=== PATIENT | female | born 1985 | race Two or more races ===

== ENCOUNTER 2024-09-28 09:17 | Inpatient (IN) | payer MEDICAID ==
[~2024-09-28] VITALS: Ht 137.2 cm; Wt 55.1 kg
[2024-09-28 11:17] LABS: BASOPHILS % (AUTO) 0.2 % (0-1); EOSINOPHILS # (AUTO) 0.1 X10'3 (0-0.9); EOSINOPHILS % (AUTO) 0.5 % (0-6); HEMATOCRIT 41.6 % (35.0-45.0); HEMOGLOBIN 14.3 g/dl (12.0-16.0); LYMPHOCYTES # (AUTO) 1.2 X10'3 (1.1-4.8); LYMPHOCYTES % (AUTO) 11.3 % (21-51); MEAN CORPUSCULAR HEMOGLOBIN 30.6 PG (27.0-31.0); MEAN CORPUSCULAR HGB CONC 34.4 g/dL (33.0-36.5); MEAN CORPUSCULAR VOLUME 88.7 FL (78-98); MEAN PLATELET VOLUME 7.4 FL (7.4-10.4); MONOCYTES # (AUTO) 0.8 X10'3 (0-0.9); MONOCYTES % (AUTO) 7.8 % (2-12); NEUTROPHILS # (AUTO) 8.3 X10'3 (1.8-7.7); NEUTROPHILS % (AUTO) 80.2 % (42-75); PLATELET COUNT 328 X10'3 (140-440); RED BLOOD COUNT 4.69 X10'6 (4.20-5.60); RED CELL DISTRIBUTION WIDTH 13.5 % (11.5-14.5); WHITE BLOOD COUNT 10.4 X10'3 (4.5-11.0)
[2024-09-28 11:56] LABS: ALANINE AMINOTRANSFERASE 473 U/L (12-78); ALBUMIN 3.6 G/DL (3.4-5.0); ALBUMIN/GLOBULIN RATIO 0.9 (1.1-1.5); ALKALINE PHOSPHATASE 200 IU/L (46-116); ANION GAP 9 (8-16); ASPARTATE AMINO TRANSFERASE 395 U/L (10-37); BLOOD UREA NITROGEN 11 MG/DL (7-18); CALCIUM 8.6 MG/DL (8.5-10.1); CHLORIDE 103 MMOL/L (99-107); CREATININE 0.58 MG/DL (0.40-0.90); GLUCOSE 112 MG/DL (70-104); POTASSIUM 3.6 MMOL/L (3.5-5.1); SODIUM 136 MMOL/L (135-145); TOTAL CARBON DIOXIDE 23.9 MMOL/L (24-32); TOTAL PROTEIN 7.8 G/DL (6.4-8.2); eCRCL 64 ML/MIN; eGFR > 90 ML/MIN
[2024-09-28 12:30] LABS: LIPASE > 375 U/L (16-77)
[2024-09-28] MEDS: normal saline 1000ML IV soln IVB ONE ×2 (13:48→14:54)
[2024-09-28] MEDS: ondansetron/PF 4mg/2ml inj IV ONE (13:50)
[2024-09-28] MEDS: HYDROmorphone 1 mg/ml syringe IV ONE (13:53)
[2024-09-28] MEDS ORDERED: iohexol 300mg/ml 100ml inj. ONE (13:56)
--- NOTE | 2024-09-28 13:56 | Physician Documentation ---
History of Present Illness Chief Complaint: Abdominal Pain w/vomiting Stated Complaint: ABD PAIN Time Seen by MD: 13:24 OK to notify your PCP?: Yes Primary Medical Doctor: NONE Source: patient, RN/MD, RN notes reviewed, old records Mode of Arrival: POV Exam Limitations: no limitations HPI 39-year-old female, with no significant past medical history, presents complaining of intermittent upper abdominal pain for the last year, worse and constant for the last three days. She also reports nausea and vomiting today. Pain seems to increase when she eats. She denies any fevers, chills, bloody stool, diarrhea, or constipation. She denies history of cholecystectomy or any other abdominal surgeries. She denies tobacco abuse or alcohol consumption. Medication Reconciliation Allergies: Coded Allergies: No Known Allergies (Unverified , 09/28/24) Past Medical History Past Medical History: No Pertinent History Past Surgical History: no surgical history; No History Of: abdominal surgery Smoking Status: Never smoker Alcohol Use: None Drug Use: none Lives In: Home Review of Systems All Other Systems at this time: Reviewed and Negative ROS As stated above in the HPI, otherwise all systems are reviewed and negative. Physical Exam Vital Signs: RN Vital Signs have been reviewed: Yes, Temperature: 97.4, Heart Rate: 73, Respiratory Rate: 15, BP: 79/44, Pulse Oximetry: 99, Weight: 55.100 Oxygen Flow Rate: 0 Pulse Oximetry Reflects: adequate oxygenation Physical Exam General: The patient is well developed, well nourished, nontoxic appearing and is in no acute distress. Skin: [employer], warm and dry with no rashes. HEENT: Head was normocephalic and atraumatic. Chest: Clear to auscultation bilaterally without wheezes, rales or rhonchi. No accessory muscle use. No dullness to percussion. Heart: Rate regular and rhythmic. S1, S2. No murmurs. Palpation of the chest wall was normal. No rubs or thrills. Abdomen: Epigastric and LUQ TTP Soft, nondistended. Positive bowel sounds. No guarding or rebound. Extremities: No cyanosis, clubbing or edema. The patient moves all extremities. Pulses were equal and symmetric. Neurologic: Motor and sensation grossly intact. Cranial nerves II-XII grossly intact. A & O x4. Psychologic: Normal mood and affect. No agitation. Progress Progress Note 1413: Hospitalist paged. 1446: Admission orders placed by internal medicine resident. 1740: Case discussed with Dr. Froylan Acevedo, who will consult tomorrow. Results/Orders Reviewed/noted all lab results: Yes Results/Orders Orders - AARON ACEVEDO MD Urinalysis, Cult If Indicated (09/28/24 09:46) Hcg, Ur Ql (09/28/24 09:46) BMP (09/28/24 09:46) Lipase (09/28/24 09:46) CMP (09/28/24 09:46) Drug Screen, Urine (09/28/24 13:39) Monitor (09/28/24 13:39) Saline Lock (09/28/24 13:39) Ct Abdomen Pelvis (09/28/24 13:39) Ethanol (09/28/24 11:00) MG (09/28/24 11:00) Completed Orders - AARON ACEVEDO MD Cbc/Diff (09/28/24 09:46) Ondansetron Inj. (Zofran 4mg/2ml Vial) (09/28/24 13:40) Normal Saline 1000ml (Sodium Chloride 10 (09/28/24 13:40) Hydromorphone 1 Mg/Ml/Pf (Dilaudid Inj.) (09/28/24 13:40) Medications Received in ER Medications (Trade) Dose Ordered Sig/Soniya Route PRN Reason Start Time Stop Time Status Last Admin Dose Admin (Zofran 4mg/2ml vial) 4 mg ONCE ONCE IV 09/28/24 13:40 09/28/24 13:41 DC 09/28/24 13:50 4 MG (sodium chloride 1000ml IV soln) 1,000 ml ONCE ONCE IVB 09/28/24 13:40 09/28/24 13:41 DC 09/28/24 13:48 1,000 ML (Dilaudid inj.) 1 mg ONCE ONCE IV 09/28/24 13:40 09/28/24 13:41 DC 09/28/24 13:53 1 MG Vital Signs 09/28/24 09/28/24 09/28/24 09/28/24 09:43 13:24 13:24 13:45 Temp 97.4 Pulse 74 69 73 Resp 12 18 18 15 B/P (MAP) 112/78 101/54 (70) 79/44 (56) Pulse Ox 98 99 99 O2 Flow Rate 0 0 09/28/24 13:53 Resp 15 Laboratory Tests Test 09/28/24 11:00 White Blood Count 10.4 Red Blood Count 4.69 Hemoglobin 14.3 Hematocrit 41.6 Mean Corpuscular Volume 88.7 Mean Corpuscular Hemoglobin 30.6 Mean Corpuscular Hemoglobin Concent 34.4 Red Cell Distribution Width 13.5 Platelet Count 328 Mean Platelet Volume 7.4 Neutrophils (%) (Auto) 80.2 H Lymphocytes (%) (Auto) 11.3 L Monocytes (%) (Auto) 7.8 Eosinophils (%) (Auto) 0.5 Basophils (%) (Auto) 0.2 Neutrophils # (Auto) 8.3 H Lymphocytes # (Auto) 1.2 Monocytes # (Auto) 0.8 Eosinophils # (Auto) 0.1 Basophils # (Auto) 0.0 CBC Comment Sodium Level 136 Potassium Level 3.6 Chloride Level 103 Carbon Dioxide Level 23.9 L Anion Gap 9 Blood Urea Nitrogen 11 Creatinine 0.58 Estimated GFR/1.73 m2 > 90 BUN/Creatinine Ratio 19.0 Glucose Level 112 H Calcium Level 8.6 Total Bilirubin 1.0 Aspartate Amino Transf (AST/SGOT) 395 H Alanine Aminotransferase (ALT/SGPT) 473 H Alkaline Phosphatase 200 H Total Protein 7.8 Albumin 3.6 Globulin 4.2 Albumin/Globulin Ratio 0.9 L Lipase > 375 H Chemistry Comments Re-Evaluation Re-Evaluation : Re-Evaluation: Improved Progress Patient was seen and examined. Patient was given reassurance. Patient has been complaining of intermittent abdominal pain but has a severe episode today. Patient states the pain was worse after eating radiating to the back. During the workup here has no signs of any infectious etiology WBCs 10.4 hemoglobin hematocrit within normal limits including normal platelets. Chemistry however showed some mild acidosis with a CO2 of 23.9 but BUN creatinine and other electrolytes were within normal limits. Lactic acid 1.4 however patient did have some mild transaminitis. Bilirubin within normal limits AST 395 ALT 473 and alk-phos of 200. Patient's lipase however was elevated greater than 375 unofficially reported to be greater than a 1000. Tox screen alcohol within normal limits. Urinalysis shows a specific gravity of 1.030 with some mild dehydration and a negative . Patient received Zofran he had some nausea later received fluids and Dilaudid. Ultimately the patient was then admitted to the hospitalist service for further workup and care. Patient's CAT scan showed some thickened gallbladder wall without gallstones I was some concern on CAT scan for possible acalculous cholecystitis. However with a negative WBC no antibiotics were given. There is a ruptured right ovarian cysts for which I contacted Gynecology who will follow up on the patient but this appears to be more of an incidental finding. As far as the pancreas there was no signs of any abscess or stranding. Continuous telemetry monitor interpretation shows normal sinus rhythm heart rate 70s, no ectopy, normal, my interpretation. Pulse oximetry monitor interpretation shows normal oxygenation at 98% room air, normal, my interpretation. EKG/XRAY/CT/US/VASC/MRI CT : Interpreted By: radiologist CT: abdomen/pelvis With Contrast?: No Impression CT abdomen and pelvis with IV contrast INDICATION: ABD PAIN TECHNIQUE: Following the IV administration of 100 mL omnipaque 300, Serial axial images were performed through the abdomen and pelvis and then reformatted in the sagittal and coronal plane. All CT scans at this medical facility are performed using dose modulation techniques as appropriate to a performed exam including the following: Automated exposure control was utilized; adjustment of the MA and/or KvP according to patient size; and use of iterative reconstruction technique. FINDINGS: Liver and spleen are normal in size without focal mass. No renal masses, stones or hydronephrosis. No masses or enlargement of the adrenal glands or pancreas. No biliary dilatation. No gallstones. Gallbladder wall is slightly thickened. No distention of bowel loops to suggest mechanical obstruction of bowel. The appendix is normal in appearance. Within the pelvis, bladder is smooth walled without stones. Partially ruptured right ovarian cyst. There is some high density fluid present in the pelvis possibly hemorrhage. IMPRESSION: 1. Partially ruptured right ovarian cyst. There is some high density fluid in the pelvis which may represent hemorrhage. May consider pelvic ultrasound for further evaluation 2. Slightly thickened gallbladder hsieh without gallstones or biliary dilatat ion. Question mild acalculous cholecystitis Computed Tomographic Radiation Dosimetry Report: Total CTDI vol = 10 mGy Total DLP = 490 mGy-cm Low dose protocols were performed. Reviewed by myself, Dr. Acevedo. Ultrasound : Interpreted By: radiologist Ultrasound of: abdomen Impression INDICATION: ruq pain TECHNIQUE: Multiple real-time sonographic images were obtained of the right upper quadrant. COMPARISON: None FINDINGS: The liver demonstrates increased echotexture without focal mass lesions. The liver measures 14 cm. There is no intrahepatic or extrahepatic ductal dilatation. The common duct measures 3 mm. Gallstones The gallbladder wall measures 3 mm and is within normal limits. The right kidney measures 10.7 cm. The right kidney is normal in contour, size, and shape. The echogenicity is normal. There is no hydronephrosis. The pancreas is not well visualized due to overlying bowel gas. IMPRESSION: Cholelithiasis without sonographic evidence of acute cholecystitis. Hepatic steatosis. Reviewed by myself, Dr. Acevedo. Medical Decision Making Additional info obtained from: old records (no prior visits) Differential Dx:Considerations: Include: Bowel obstruction, Cholangitis, Cholelithasis, Constipation, Esophagitis, Gastritis/PUD, Gastroenteritis, GI hemorrhage, Hernia, Hepatitis, Inflammatory BD, Ischemic bowel, Pancreatitis, PID, Urinary obstruction, Urinary tract infection, Urolithiasis, Other Departure Time of Disposition: 14:13 Disposition: 09 ADMITTED INPATIENT Admitted to Inpatient Unit: yes, to hospitalist, to surgeon (Computer Repair Engineer) Admission Level of Care: PCU with Tele Impression: Primary Impression: Acute pancreatitis Qualified Codes: K85.90 - Acute pancreatitis without necrosis or infection, unspecified Additional Impression: Ruptured ovarian cyst Condition: Guarded Referrals: NO PRIMARY CARE PROVIDER (PCP) Education Educated: Patient Educated regarding: diagnosis, need for follow up Signature Scribe Signature: Scribed for Aaron Acevedo MD by Angelika Boss . 09/28/24 13:58 Attestation: The note accurately reflects work and decisions made by me.Aaron Acevedo MD 09/28/24 13:56 AARON ACEVEDO MD Sep 28, 2024 13:56 ANGELIKA FOWLER Sep 28, 2024 14:00
[2024-09-28 14:05] LABS: ETHANOL < 10 MG/DL (<10); MAGNESIUM 2.1 MG/DL (1.5-2.4)
[2024-09-28] MEDS ORDERED: potassium Cl 20 mEq SR tablet PO PRN (14:50)
[2024-09-28] MEDS ORDERED: magnesium sulf-water 4G/100mL 100 ML IV PRN (14:50)
[2024-09-28] MEDS ORDERED: magnesium sulf-water 2g/50mL 50 ML IV PRN (14:50)
[2024-09-28] MEDS ORDERED: magnesium Cl slow-release 64mg tablet PO PRN (14:50)
[2024-09-28] MEDS ORDERED: potassium Cl 40MEQ/1/2NS 520ml 520 ML IV PRN (14:50)
[2024-09-28] MEDS ORDERED: magnesium hydroxide 30ml (MOM) UD suspension PO PRN (14:50)
[2024-09-28] MEDS ORDERED: morphine 2 MG/ML inj. syringe IV PRN (14:50)
[2024-09-28] MEDS ORDERED: acetaminophen 325mg tablet PO PRN (14:50)
[2024-09-28] MEDS ORDERED: mag hydrox/Alum hydrox/simeth 30ml oral suspension PO PRN (14:50)
[2024-09-28] MEDS ORDERED: ondansetron/PF 4mg/2ml inj IV PRN (14:50)
--- NOTE | 2024-09-28 14:59 | RADIOLOGY REPORT ---
INDICATION: ruq pain TECHNIQUE: Multiple real-time sonographic images were obtained of the right upper quadrant. COMPARISON: None FINDINGS: The liver demonstrates increased echotexture without focal mass lesions. The liver measures 14 cm. There is no intrahepatic or extrahepatic ductal dilatation. The common duct measures 3 mm. Gallstones The gallbladder wall measures 3 mm and is within normal limits. The right kidney measures 10.7 cm. The right kidney is normal in contour, size, and shape. The echog enicity is normal. There is no hydronephrosis. The pancreas is not well visualized due to overlying bowel gas. IMPRESSION: Cholelithiasis without sonographic evidence of acute cholecystitis. Hepatic steatosis.
[2024-09-28 15:29] LABS: BILIRUBIN,URINE SMALL (Neg); CLARITY,URINE CLEAR (Clear); COLOR,URINE YELLOW (Yellow); GLUCOSE, URINE NEGATIVE (Neg); KETONES,URINE NEGATIVE (Neg); LEUKOCYTE ESTERASE ,URINE NEGATIVE (Neg); NITRITES, URINE NEGATIVE (Neg); OCCULT BLOOD,URINE TRACE-INTACT (Neg); PROTEIN,URINE TRACE mg/dl (Neg)
[2024-09-28 15:30] LABS: URINE HCG NEGATIVE (NEG)
[2024-09-28] MEDS: ringers solution, lacted 1,000 ML IV SCH (15:39)
[2024-09-28 15:50] LABS: URINE AMPHETAMINE SCREEN NEGATIVE (Neg); URINE BARBITUATE SCREEN NEGATIVE (Neg); URINE BENZODIAZEPINES SCREEN NEGATIVE (Neg); URINE CANNABINOID SCREEN NEGATIVE (Neg); URINE COCAINE SCREEN NEGATIVE (Neg); URINE METHADONE SCREEN NEGATIVE (Neg); URINE OPIATE SCREEN POSITIVE (Neg); URINE PHENCYCLIDINE SCREEN NEGATIVE (Neg)
[2024-09-28 15:56] LABS: UA COLLECTION TYPE NON-SPECIFIED
[2024-09-28 15:57] LABS: MUCUS STRANDS FEW /LPF (Neg); SQUAMOUS EPITHELIAL CELL,UR MANY /LPF (FEW)
[2024-09-28 15:58] LABS: BACTERIA,URINE FEW /HPF (Neg); RBC,URINE 0-2 /HPF (0-2); WBC,URINE 0-4 /HPF (0-4)
--- NOTE | 2024-09-28 16:21 | RADIOLOGY REPORT ---
CT abdomen and pelvis with IV contrast INDICATION: ABD PAIN TECHNIQUE: Following the IV administration of 100 mL omnipaque 300, Serial axial images were performe d through the abdomen and pelvis and then reformatted in the sagittal and coronal plane. All CT scans at this medical facility are performed using dose modulation techniques as appropriate to a performe d exam including the following: Automated exposure control was utilized; adjustment of the MA and/or KvP according to patient size; and use of iterative reconstruction technique. FINDINGS: Liver and spleen are normal in size without focal mass. No renal masses, stones or hydronephrosis. No masses or enlargement of the adrenal glands or pancreas. No biliary dilatation. No gallstones. Gallbladder wall is slightly thickened. No distention of bowel loops to suggest mechanical obstruction of bowel. The appendix is normal in ap pearance. Within the pelvis, bladder is smooth walled without stones. Partially ruptured right ovarian cyst. There is some high density fluid present in the pelvis possibly hemorrhage. IMPRESSION: 1. Partially ruptured right ovarian cyst. There is some high density fluid in the pelvis which may r epresent hemorrhage. May consider pelvic ultrasound for further evaluation 2. Slightly thickened gallbladder hsieh without gallstones or biliary dilatation. Question mild acalc ulous cholecystitis Computed Tomographic Radiation Dosimetry Report: Total CTDI vol = 10 mGy Total DLP = 490 mGy-cm Low d ose protocols were performed.
[2024-09-28 19:15] VITALS: BP 102/66; PULSE 82; RESP 16; TEMP 98.1; O2SAT 99
--- NOTE | 2024-09-28 19:31 | HISTORY AND PHYSICAL-Residence ---
History & Physical Providers to CC Resident Creating Document: PARK SOLORZANO RES ~ History of Present Illness Primary Medical Doctor: NONE Reason for Admit\Complaint: Acute pancreatitis History of Present Illness 39-year-old female with no significant past medical history presented to the ED with chief complaints of abdominal pain x1 day. States on Saturday at around 11:00 a.m. she had chips and chilly, after that she had pizza and chicken for lunch. Post lunch she started having upper and right-sided abdominal pain. Intensity 8/10. She states that eating aggravates the pain. No relieving factors. Associated with back pain. Denies nausea, vomiting, diarrhea, constipation, fever, chills. She had similar episode of abdominal pain a year ago and was diagnosed to have gastritis, she states that she was discharged on a medication does not remember which one by her PCP in [place]. She moved to [place] three years ago and she does not have a PCP at this time. Denies alcohol, smoking or drug use. Does not take any home medication except vitamins. She is independent in daily activities and lives with her family. Discussed advanced care directives and she wishes to be a full code. Allergies: Coded Allergies: No Known Allergies (Unverified , 09/28/24) Past Medical History Past Medical History None Past Surgical History Surgical History Comment section x3 Past Social History Alcohol Use: None Drug Use: None Lives In: Home ROS All Other Systems: Reviewed and Negative ROS Reviewed in full. All negative except for pertinent positive HPI. Exam Vitals: Vital Signs Date Time Temp Pulse Resp B/P (MAP) Pulse Ox O2 Delivery O2 Flow Rate FiO2 09/28/24 18:35 10 09/28/24 18:19 78 100 09/28/24 13:24 0 09/28/24 09:43 97.4 General: General: Awake and Alert, mild acute distress. HEENT: Conjunctiva pink, Sclera clear, Mucus Membranes dry. Neck: Supple without masses and tenderness. Resp: Unlabored. Equal breath sounds bilaterally. Heart: Regular rhythm, normal S1 and S2, no rub, murmur or gallop. Abdomen: Upper and right-sided abdominal pain, tenderness to deep palpation. Toscano sign negative. Abdomen soft, no organomegaly. Normal bowel sounds x4. No guarding or rigidity noted. Extremities: Normal ROM, no swelling, nontender. No cyanosis,clubbing or edema. [employer]: No gross motor or sensory abnormalities. Skin: Warm and Dry. Diagnostic Data Last Recorded Lab Results: 09/28/24 1100 09/28/24 1100 Advance Care Planning Advanced Care plannin - 30 Minutes Additional Plan 39-year-old female with no significant past medical history presented to the ED with chief complaints of abdominal pain x1 day. Acute abdominal pain Transaminitis Hypotension Possible acute pancreatitis vs symptomatic cholelithiasis WBCs and lactic acid within normal limits Lipase significantly elevated >375 UA negative, urine hCG negative, U tox negative Ultrasound abdomen: Cholelithiasis without signs of acute cholecystitis Patient blood pressures are soft, improved after she received 2 L fluid bolus in the ED, continue LR at 150 mL/hour CT abdomen pelvis: Partially ruptured right ovarian cyst. Some high-density fluid in the pelvis which may represent hemorrhage. Slightly thickened gallbladder without gallstones or biliary obstruction. Mild acalculous cholecystitis questionable. Partially ruptured ovarian cyst Not concerning at this time, ED Dr. Acevedo going to consult Dr. Froylan BUSTAMANTE for further clarification. Appreciate recommendations, will follow up. Code Status: Full code DVT prophylaxis: Lovenox Analgesia/sedation: Morphine/[place] Line/tube: PIV GI prophylaxis: Protonix Nutrition: NPO Prognosis: Guarded Disposition: Continue medical management. Park Solorzano MD. IM Resident PGY-2 Date of Service: Sep 28, 2024 Billing Provider: MIMI GUERRERO MD Common Visit Codes: [id number] INP/OBS CARE (HIGH) Secondary Visit Codes: [id number] CARE PLAN 30 MINUTES PARK SOLORZANO, RES Sep 28, 2024 19:31 MIMI GUERRERO MD Sep 29, 2024 21:20
[2024-09-28] MEDS: K and/or MAG REPLACEMENT MC SCH (20:00)
[2024-09-28 20:20] VITALS: RESP 16
[2024-09-28] MEDS: acetaminophen 325mg tablet PO PRN (21:06)
[2024-09-28] MEDS: enoxaparin 30mg/0.3ml syringe SQ SCH (21:06)
[2024-09-28 22:00] VITALS: BP 92/57; PULSE 65; RESP 14; TEMP 97.6; O2SAT 97
[2024-09-29] VITALS (7 sets, daily range): BP systolic 92–112; BP diastolic 49–76; PULSE 61–82; RESP 13–16; TEMP 97.4–98.4; O2SAT 96–99
[2024-09-29 04:52] LABS: BASOPHILS % (AUTO) 0.2 % (0-1); EOSINOPHILS # (AUTO) 0.1 X10'3 (0-0.9); HEMATOCRIT 35.8 % (35.0-45.0); HEMOGLOBIN 12.4 g/dl (12.0-16.0); MEAN CORPUSCULAR HEMOGLOBIN 30.7 PG (27.0-31.0); MEAN CORPUSCULAR HGB CONC 34.7 g/dL (33.0-36.5); MEAN CORPUSCULAR VOLUME 88.4 FL (78-98); MEAN PLATELET VOLUME 7.4 FL (7.4-10.4); MONOCYTES # (AUTO) 0.5 X10'3 (0-0.9); MONOCYTES % (AUTO) 6.4 % (2-12); NEUTROPHILS # (AUTO) 4.5 X10'3 (1.8-7.7); NEUTROPHILS % (AUTO) 63.4 % (42-75); PLATELET COUNT 290 X10'3 (140-440); RED BLOOD COUNT 4.05 X10'6 (4.20-5.60); RED CELL DISTRIBUTION WIDTH 13.6 % (11.5-14.5)
[2024-09-29 05:00] LABS: PROTHROMBIN TIME 10.6 SECONDS (9.0-12.0)
[2024-09-29 05:07] LABS: ALANINE AMINOTRANSFERASE 463 U/L (12-78); ALBUMIN 2.7 G/DL (3.4-5.0); ALBUMIN/GLOBULIN RATIO 0.8 (1.1-1.5); ALKALINE PHOSPHATASE 170 IU/L (46-116); ANION GAP 6 (8-16); ASPARTATE AMINO TRANSFERASE 250 U/L (10-37); BILIRUBIN,TOTAL 0.6 MG/DL (0.1-1.0); BLOOD UREA NITROGEN 4 MG/DL (7-18); CALCIUM 7.8 MG/DL (8.5-10.1); CHLORIDE 110 MMOL/L (99-107); CHOL/HDL RATIO 3.5 (0.00-4.99); CHOLESTEROL 166 MG/DL (0-200); CREATININE 0.57 MG/DL (0.40-0.90); GLUCOSE 88 MG/DL (70-104); HDL CHOLESTEROL 47 MG/DL (35-60); LDL CHOLESTEROL 101 MG/DL (50-100); MAGNESIUM 1.9 MG/DL (1.5-2.4); PHOSPHORUS 2.7 MG/DL (2.3-4.5); POTASSIUM 3.4 MMOL/L (3.5-5.1); SODIUM 141 MMOL/L (135-145); TOTAL CARBON DIOXIDE 25.3 MMOL/L (24-32); TRIGLYCERIDES 94 MG/DL (20-135); eCRCL 65 ML/MIN; eGFR > 90 ML/MIN
[2024-09-29] MEDS: potassium Cl 20 mEq SR tablet PO PRN (08:02)
[2024-09-29] MEDS: pantoprazole 40 MG vial IV SCH (10:03)
[2024-09-29] MEDS: SINCALIDE IV ONE (14:20)
[2024-09-29] MEDS: NORMAL SALINE IV ONE (14:20)
--- NOTE | 2024-09-29 14:59 | CONSULTATION ---
DATE OF CONSULTATION: 09/29/2024 DICTATING PHYSICIAN: Miguelito Acevedo MD PHYSICIANS REQUESTING CONSULTATION: Raul Dangelo MD REASON FOR CONSULTATION: Presumed ruptured right ovarian cyst. HISTORY OF PRESENT ILLNESS: The patient is a 39-year-old 3, para 3 female presented to the Emergency Department with acute right upper quadrant pain radiating to the epigastrium. The patient underwent CT study, which showed what appeared to be a right partially ruptured ovarian cyst with a fluid component within the pelvis, possibly representing hematoma. However, the patient was admitted for presumed pancreatitis based on her symptoms and lab results. The patient reports she has had mild right lower quadrant pain and most of her pain is actually at the epigastrium. PAST MEDICAL HISTORY: Noncontributory. PAST SURGICAL HISTORY: section x 3. ALLERGIES: No known drug allergies. SOCIAL HISTORY: Denies alcohol, tobacco or illicit drug use. MEDICATIONS: Outpatient none. The patient denies any control. PHYSICAL EXAMINATION: The patient is alert, oriented and in no acute distress. VITAL SIGNS: Temperature is 98.4, pulse of 65 to 72, respiratory rate of 14, blood pressure is 92/59, saturating 98% on room air. ABDOMEN: Soft, nondistended. There is mild right lower quadrant tenderness with deep palpation. PELVIC EXAM: Deferred due to recent CT study. DIAGNOSTIC DATA: As noted above, CT showed partially ruptured right ovarian cyst with some high density fluid within the pelvis, possibly representing hemorrhage. An abdominal ultrasound was performed; however, the pelvis was not included in the study. SIGNIFICANT LABS: Currently, the patient's white count is 7.0. Hemoglobin on admission was 14.3 on 09/28. Today, it is 12.4. Platelets today 290. The patient's chemistry panel was significant for elevated LFTs. Lipase on admission was 375. Second lipase is not available at this time. ASSESSMENT: Incidental partially ruptured right ovarian cyst per CT scan; however, high density fluid was noted suspicious for hemorrhage. In view of the exam today, which shows the abdomen nondistended, the patient's vital signs are stable, I doubt that there is any significant active bleeding at this time; however, I will at this point recommend obtaining a third CBC for comparison as obviously there was some hemodilution after admission due to IV fluid administration. In addition, CT is not the optimal study for evaluation of the pelvis; and in fact, the radiologist recommended a transvaginal ultrasound for evaluation of the ruptured ovarian cyst and I concurred with this recommendation. I have spoken to both Dr. Dangelo and his resident following the patient and discussed these recommendations. I will follow up on the studies once they are available. Miguelito Acevedo MD TID: [id number] RECEIPT: [id number] SHAWANDA/SEFERINO
--- NOTE | 2024-09-29 15:35 | RADIOLOGY REPORT ---
Procedure: NM NM HIDA SCAN Exam Date: 09/29/2024 01:30 PM Clinical History: abd pain Comparison Study: None Nuclear Medicine Hepatobiliary Scan. Technique: Following the intravenous administration of 6 mCi of technetium 99m labeled Choletec multiple planar abdominal planar images were obtained in anterior projection in 5 minute intervals for45 minutes . Ri ght lateral images were obtained at 45 minutes after injection. Findings: The liver appears grossly normal in size. There is no abnormal persistence of the cardiac or blood po ol activity. There is prompt visualization of the gallbladder and excretion of activity into the smal l bowel. Impression: Unremarkable hepatobiliary study without evidence of acute cholecystitis.
--- NOTE | 2024-09-29 18:55 | PROGRESS NOTE- Residence ---
Progress Note - Resident Providers to CC Resident Creating Document: PARK SOLORZANO RES ~ Antibiotic Timeout Antibiotic Ordered?: No Subjective Patient seen and examined at bedside. Continues to complain of 5/10 abdominal pain. Denies nausea, vomiting, diarrhea, fever or chills. She is currently NPO. Objective Vital Signs Date Time Temp Pulse Resp B/P (MAP) Pulse Ox O2 Delivery O2 Flow Rate FiO2 09/29/24 11:00 97.9 65 16 92/59 (70) 99 Room Air 09/29/24 08:00 0.0 Result Diagram: 09/29/2441709/29/24417 General: Awake and Alert, no acute distress. HEENT: Conjunctiva pink, Sclera clear, Mucus Membranes dry. Neck: Supple without masses and tenderness. Resp: Unlabored. Equal breath sounds bilaterally. Heart: Regular rhythm, normal S1 and S2, no rub, murmur or gallop. Abdomen: Upper and right-sided abdominal pain, tenderness to deep palpation. Toscano sign negative. Abdomen soft, no organomegaly. Normal bowel sounds x4. No guarding or rigidity noted. Extremities: Normal ROM, no swelling, nontender. No cyanosis,clubbing or edema. ACTING SECTION CHIEF: No gross motor or sensory abnormalities. Skin: Warm and Dry. Coagulation Studies Laboratory Tests Test 09/29/24 04:18 Prothrombin Time 10.6 SECONDS (9.0-12.0) INR International Normalized Ratio 1.0 INR Coagulation Comments Assessment Assessment 39-year-old female with no significant past medical history presented to the ED with chief complaints of abdominal pain x1 day. Plan Plan Acute gallstone pancreatitis Acute abdominal pain secondary to above Transaminitis WBCs and lactic acid within normal limits Lipase significantly elevated >375 UA negative, urine hCG negative, U tox negative Ultrasound abdomen: Cholelithiasis without signs of acute cholecystitis continue LR at 150 mL/hour CT abdomen pelvis: Partially ruptured right ovarian cyst. Some high-density fluid in the pelvis which may represent hemorrhage. Slightly thickened gallbladder without gallstones or biliary obstruction. Mild acalculous cholecystitis questionable. 09/29/2024: She continues to have abdominal pain 5/10 LFTs are downtrending but still high Consulted surgeon Dr. Hill, recommended: ice chips for today as she continues to have the abdominal pain. She can start clear liquids tomorrow. If bilirubin increases, she will likely need MRCP versus ERCP. If not she will be taken for surgery on . Partially ruptured ovarian cyst Dr.George Curtis BUSTAMANTE evaluated the patient and recommended to to get a transvaginal ultrasound. And to repeat CBC as there was a drop in the hemoglobin from 14-12, with the patient was also getting aggressive fluid resuscitation, hence the drop could have been secondary to dilution. She does not have any active signs of bleeding. Transvaginal ultrasound can not be done until tomorrow due to logistics We will follow up with repeat H&H in a.m. Code Status: Full code DVT prophylaxis: Lovenox Analgesia/sedation: Morphine/[place] Line/tube: PIV GI prophylaxis: Protonix Nutrition: Ice chips for today, clear liquids tomorrow Prognosis: Guarded Disposition: Continue medical management. Plan for surgery likely on . Park Solorzano MD. IM Resident PGY-2 Date of Service: Sep 29, 2024 Billing Provider: MIMI GUERRERO MD Common Visit Codes: [id number] INP/OBS CARE(HIGH) PARK SOLORZANO, RES Sep 29, 2024 18:55 MIMI GUERRERO MD Sep 29, 2024 21:22
[2024-09-30] MEDS: HYDROcodone/acetaminophen 5mg/325mg tablet PO PRN (04:28)
[2024-09-30 04:51] LABS: BASOPHILS % (AUTO) 0.4 % (0-1); EOSINOPHILS # (AUTO) 0.1 X10'3 (0-0.9); EOSINOPHILS % (AUTO) 2.1 % (0-6); HEMATOCRIT 35.8 % (35.0-45.0); HEMOGLOBIN 12.3 g/dl (12.0-16.0); LYMPHOCYTES # (AUTO) 1.8 X10'3 (1.1-4.8); MEAN CORPUSCULAR HEMOGLOBIN 30.4 PG (27.0-31.0); MEAN CORPUSCULAR HGB CONC 34.2 g/dL (33.0-36.5); MEAN PLATELET VOLUME 7.3 FL (7.4-10.4); MONOCYTES # (AUTO) 0.4 X10'3 (0-0.9); MONOCYTES % (AUTO) 9.1 % (2-12); NEUTROPHILS # (AUTO) 1.9 X10'3 (1.8-7.7); NEUTROPHILS % (AUTO) 45.4 % (42-75); PLATELET COUNT 292 X10'3 (140-440); RED BLOOD COUNT 4.02 X10'6 (4.20-5.60); RED CELL DISTRIBUTION WIDTH 13.6 % (11.5-14.5); WHITE BLOOD COUNT 4.3 X10'3 (4.5-11.0)
[2024-09-30 05:13] LABS: ALANINE AMINOTRANSFERASE 312 U/L (12-78); ALBUMIN 2.8 G/DL (3.4-5.0); ALBUMIN/GLOBULIN RATIO 0.8 (1.1-1.5); ALKALINE PHOSPHATASE 141 IU/L (46-116); ANION GAP 11 (8-16); ASPARTATE AMINO TRANSFERASE 81 U/L (10-37); BILIRUBIN,TOTAL 0.6 MG/DL (0.1-1.0); BLOOD UREA NITROGEN 4 MG/DL (7-18); BUN/CREATININE RATIO 6.8 (10.0-20.0); CALCIUM 8.3 MG/DL (8.5-10.1); CHLORIDE 108 MMOL/L (99-107); CREATININE 0.59 MG/DL (0.40-0.90); GLUCOSE 78 MG/DL (70-104); MAGNESIUM 1.8 MG/DL (1.5-2.4); PHOSPHORUS 3.2 MG/DL (2.3-4.5); POTASSIUM 3.8 MMOL/L (3.5-5.1); SODIUM 144 MMOL/L (135-145); TOTAL CARBON DIOXIDE 25.3 MMOL/L (24-32); TOTAL PROTEIN 6.2 G/DL (6.4-8.2); eCRCL 63 ML/MIN; eGFR > 90 ML/MIN
[2024-09-30 06:00] VITALS: BP 87/54; PULSE 55; RESP 13; TEMP 98; O2SAT 95
[2024-09-30 08:00] VITALS: RESP 13; O2SAT 98
[2024-09-30 10:28] VITALS: BP 90/56; PULSE 70; RESP 15; O2SAT 97
[2024-09-30] MEDS: ciprofloxacin/D5W 200mg/100mL 100 ML IV SCH (13:00)
--- NOTE | 2024-09-30 16:02 | PROGRESS NOTE ---
DATE: 09/30/2024 DICTATING PHYSICIAN: Miguelito Acevedo MD FOLLOWUP NOTE SIGNIFICANT EVENTS: A transvaginal ultrasound was ordered on 09/29; however, the ultrasound has not yet been performed. Hence, we are awaiting the results; however, the patient remains stable and unlikely to have any internal hemorrhaging at this time. The patient denies any changes. Denies pelvic pain. OBJECTIVE: PELVIC: Again was deferred. VITAL SIGNS: Temperature of 98.0, pulse of 55, respiratory rate of 13, blood pressure is 90/56. She is saturating 97% on room air. SIGNIFICANT LABS: CBC today shows hemoglobin is 12.3, prior hemoglobin was 12.4. ASSESSMENT: A 39-year-old female who was admitted for pancreatitis and scheduled for surgery with Dr. Hill tomorrow for possible cholecystitis as I understand it. The patient had an incidental finding of a ruptured ovarian cyst for which the patient is asymptomatic. There was suspicion of possible hemorrhagic corpus luteum cyst. Hence, CBC was repeated today, which shows no evidence of ongoing bleeding. Ultrasound was ordered yesterday; however, the study has not yet been performed and it is pending at this time. In view of a stable hemoglobin, does not appear that I need to be involved in the patient's surgery tomorrow. I will follow up on the ultrasound results, the patient's nurse will be calling me when the results are available. Otherwise, I will sign off for now unless the study shows any reason for further involvement. Miguelito Acevedo MD TID: [id number] RECEIPT: [id number] SHAWANDA/DEBBIE
[2024-09-30 18:00] VITALS: BP_SYST 106; BP_SYST 113; BP_SYST 124; BP_DIAS 65; BP_DIAS 79; BP_DIAS 80; PULSE 78; PULSE 79; PULSE 80
--- NOTE | 2024-09-30 18:49 | PROGRESS NOTE- Residence ---
Progress Note - Resident Providers to CC Resident Creating Document: PARK SOLORZANO RES ~ Antibiotic Timeout Antibiotic Ordered?: Yes Subjective Patient seen and examined at bedside. She is currently having clear liquids, able to tolerate, feeling better today. no new concerns or complaints. Objective Vital Signs Date Time Temp Pulse Resp B/P (MAP) Pulse Ox O2 Delivery O2 Flow Rate FiO2 09/30/24 18:00 79 106/65 (79) 78 124/79 (94) 80 113/80 (91) 09/30/24 10:28 15 97 Room Air 09/30/24 08:00 0.0 09/30/24 06:00 98.0 Result Diagram: 09/30/2441609/30/24416 General: Awake and Alert, no acute distress. HEENT: Conjunctiva pink, Sclera clear, Mucus Membranes dry. Neck: Supple without masses and tenderness. Resp: Unlabored. Equal breath sounds bilaterally. Heart: Regular rhythm, normal S1 and S2, no rub, murmur or gallop. Abdomen: Upper and right-sided abdominal pain, tenderness to deep palpation. Toscano sign negative. Abdomen soft, no organomegaly. Normal bowel sounds x4. No guarding or rigidity noted. Extremities: Normal ROM, no swelling, nontender. No cyanosis,clubbing or edema. HEALTH INFORMATION ASSISTANT: No gross motor or sensory abnormalities. Skin: Warm and Dry. Coagulation Studies Laboratory Tests Test 09/29/24 04:18 Prothrombin Time 10.6 SECONDS (9.0-12.0) INR International Normalized Ratio 1.0 INR Coagulation Comments Assessment Assessment 39-year-old female with no significant past medical history presented to the ED with chief complaints of abdominal pain x1 day. Plan Plan Acute gallstone pancreatitis Acute abdominal pain secondary to above Transaminitis WBCs and lactic acid within normal limits Lipase significantly elevated >375 UA negative, urine hCG negative, U tox negative Ultrasound abdomen: Cholelithiasis without signs of acute cholecystitis continue LR at 150 mL/hour CT abdomen pelvis: Partially ruptured right ovarian cyst. Some high-density fluid in the pelvis which may represent hemorrhage. Slightly thickened gallbladder without gallstones or biliary obstruction. Mild acalculous cholecystitis questionable. 09/29/2024: She continues to have abdominal pain 5/10 LFTs are downtrending but still high Consulted surgeon Dr. Hill, recommended: ice chips for today as she continues to have the abdominal pain. She can start clear liquids tomorrow. If bilirubin increases, she will likely need MRCP versus ERCP. If not she will be taken for surgery on . 09/30/2024 Tolerating clear liquid diet, NPO after midnight likely to be taken for surgery tomorrow Partially ruptured ovarian cyst Dr.George Curtis BUSTAMANTE evaluated the patient and recommended to to get a transvaginal ultrasound. And to repeat CBC as there was a drop in the hemoglobin from 14-12, with the patient was also getting aggressive fluid resuscitation, hence the drop could have been secondary to dilution. She does not have any active signs of bleeding. Follow up with ultrasound pelvis H&H stable. Code Status: Full code DVT prophylaxis: Lovenox Analgesia/sedation: Morphine/[place] Line/tube: PIV GI prophylaxis: Protonix Nutrition: NPO after midnight Prognosis: Guarded Disposition: Continue medical management. Surgery tomorrow. Park Solorzano MD. IM Resident PGY-2 Date of Service: Sep 30, 2024 Billing Provider: MIMI GUERRERO MD Common Visit Codes: [id number] INP/OBS CARE(HIGH) PARK SOLORZANO, RES Sep 30, 2024 18:49 MIMI GUERRERO MD Sep 30, 2024 21:40
--- NOTE | 2024-09-30 18:53 | CONSULTATION REPORT ---
History of Present Illness Providers to CC CC: ELIZABETH GREEN MD ~ Reason for Admit\Admit Dx: Acute pancreatitis Refering MD: NONE History of Present Illness Otherwise healthy 39-year-old female presents to the emergency room two days ago with intermittent, worsening epigastric and right upper quadrant abdominal pain. Found to have transaminitis as well as elevated alkaline phosphatase and markedly elevated lipase. Cholelithiasis. Working diagnosis is gallstone pancreatitis, however, acute cholecystitis was ruled out with a HIDA scan. MRCP not performed due to normal bilirubin Patient clinically improving and tolerating clear liquid diet today I was consulted given the working diagnosis of gallstone pancreatitis for interval cholecystectomy. Interviewing the patient in her room with her significant other She is in no apparent distress States she tolerated clear liquid diet States she is feeling better Allergies: Coded Allergies: No Known Allergies (Unverified , 09/28/24) Past Medical History Medical History Comment None reported Past Surgical History Surgical History Comment section x3 Past Family History Family History Comment Not applicable Past Social History Social History Comment Negative x3 Health Maintenance Health Maintenance Not applicable Physical Exam Last Vital Signs Recorded: RN Vital Signs have been reviewed: Yes, Temperature: 98.0, Source: Temporal, Heart Rate: 80, Respiratory Rate: 15, BP: 113/80, Pulse Oximetry: 97, Weight: 55.100 General Appearance: alert, WD/WN, no apparent distress EENT: PERRL/EOMI; No: scleral icterus (R), scleral icterus (L) Neck: normal inspection, supple Respiratory: lungs clear Cardiovascular: normal peripheral pulses, regular rate, rhythm Gastrointestinal Softly distended Epigastric and right upper quadrant mild tenderness to palpation No rebound tenderness No palpable masses or hernias Results Diagram Lab Result Diagram: 09/30/24 0417 09/30/24 0417 Assessment/Plan Problems/Diagnosis: (1) Gallstone pancreatitis (2) Cholelithiasis Assessment & Plan: Interval cholecystectomy recommended Literature supports this given the risk of recurrence being estimated to be approximately 25% at 30 days, 30% at 60 days and a lifetime risk of 50% in young patients with ongoing cholelithiasis The risks, benefits, and alternatives to a robotic assisted, laparoscopic possible open cholecystectomy were discussed with the patient and her significant other. Risks include, but are not limited to, bleeding, infection, injury to intra-abdominal structures, biliary injury, postoperative bile leak and retained common bile duct stone. Patient verbalized understanding. She would like to think about this for a few hours I will make her NPO after midnight in the event that she chooses to proceed with surgery, we will proceed tomorrow afternoon. Problem Qualifiers (1) Cholelithiasis: ELIZABETH GREEN MD Sep 30, 2024 18:53
[2024-09-30 20:00] VITALS: BP_SYST 104; BP_SYST 109; BP_SYST 112; BP_DIAS 61; BP_DIAS 65; BP_DIAS 78; PULSE 60; PULSE 68; PULSE 92; RESP 16; O2SAT 97
--- NOTE | 2024-09-30 20:25 | RADIOLOGY REPORT ---
TRANSABDOMINAL AND TRANSVAGINAL PELVIC ULTRASOUND CLINICAL HISTORY: ruptured ovarian cyst TECHNIQUE: Multiple grayscale ultrasound images were obtained of the pelvis via transabdominal and tr ansvaginal approach. Limited color Doppler and spectral Doppler acquisitions were also obtained. COMPARISON: CT abdomen and pelvis from 09/28/2024 FINDINGS: Uterus: 6.5 x 3.9 x 6.1 cm. The uterine contour is smooth. No myometrial masses are seen. Cervical na bothian cysts. Endometrium: 0.7 cm. No endometrial mass is seen. Right adnexa: right ovary 2.5 x 1.6 x 2.1 cm. Normal arterial blood flow in the ovary. No right adnex al mass seen. Left adnexa: left ovary 2.7 x 1.5 x 3.1 cm. Normal arterial blood flow in the ovary. No left adnexal mass seen. Other: Simple fluid in the cul-de-sac. IMPRESSION: Unremarkable pelvic ultrasound.
[2024-09-30] MEDS: metroNIDAZOLE-Flagyl 250mg/NS 50 ML IV SCH (21:44)
[2024-09-30 22:00] VITALS: BP 104/61; PULSE 60; RESP 16; TEMP 97.6; O2SAT 97
[2024-10-01] VITALS (18 sets, daily range): BP systolic 94–122; BP diastolic 50–79; PULSE 54–77; RESP 11–17; TEMP 97.2–98.7; O2SAT 79–100
[2024-10-01 04:34] LABS: BASOPHILS % (AUTO) 0.4 % (0-1); EOSINOPHILS # (AUTO) 0.1 X10'3 (0-0.9); EOSINOPHILS % (AUTO) 1.7 % (0-6); HEMOGLOBIN 12.9 g/dl (12.0-16.0); LYMPHOCYTES # (AUTO) 2.3 X10'3 (1.1-4.8); LYMPHOCYTES % (AUTO) 41.6 % (21-51); MEAN CORPUSCULAR HEMOGLOBIN 30.5 PG (27.0-31.0); MEAN CORPUSCULAR HGB CONC 34.7 g/dL (33.0-36.5); MEAN CORPUSCULAR VOLUME 87.7 FL (78-98); MEAN PLATELET VOLUME 6.9 FL (7.4-10.4); MONOCYTES # (AUTO) 0.5 X10'3 (0-0.9); MONOCYTES % (AUTO) 9.2 % (2-12); NEUTROPHILS # (AUTO) 2.6 X10'3 (1.8-7.7); NEUTROPHILS % (AUTO) 47.1 % (42-75); PLATELET COUNT 311 X10'3 (140-440); RED BLOOD COUNT 4.22 X10'6 (4.20-5.60); RED CELL DISTRIBUTION WIDTH 13.1 % (11.5-14.5); WHITE BLOOD COUNT 5.5 X10'3 (4.5-11.0)
[2024-10-01 04:55] LABS: ALANINE AMINOTRANSFERASE 251 U/L (12-78); ALBUMIN 3.2 G/DL (3.4-5.0); ALBUMIN/GLOBULIN RATIO 0.9 (1.1-1.5); ALKALINE PHOSPHATASE 138 IU/L (46-116); ANION GAP 14 (8-16); ASPARTATE AMINO TRANSFERASE 40 U/L (10-37); BILIRUBIN,TOTAL 0.6 MG/DL (0.1-1.0); BLOOD UREA NITROGEN 3 MG/DL (7-18); BUN/CREATININE RATIO 4.4 (10.0-20.0); CALCIUM 8.7 MG/DL (8.5-10.1); CHLORIDE 106 MMOL/L (99-107); CREATININE 0.68 MG/DL (0.40-0.90); GLUCOSE 98 MG/DL (70-104); MAGNESIUM 1.7 MG/DL (1.5-2.4); PHOSPHORUS 4.2 MG/DL (2.3-4.5); POTASSIUM 3.2 MMOL/L (3.5-5.1); SODIUM 144 MMOL/L (135-145); TOTAL CARBON DIOXIDE 23.8 MMOL/L (24-32); TOTAL PROTEIN 6.9 G/DL (6.4-8.2); eCRCL 54 ML/MIN; eGFR > 90 ML/MIN
[2024-10-01 09:06] LABS: APTT 30 SECONDS (22-32); INR 1.1 INR
[2024-10-01] MEDS: INDOCYANINE GREEN 25 MG/10 ML VIAL IV STA (09:50)
[2024-10-01] MEDS ORDERED: enalaprilat 1.25mg/ml 2ml vial IV PRN (10:00)
[2024-10-01] MEDS ORDERED: proCHLORperazine 10 MG/2 ml inj IV PRN (10:00)
[2024-10-01] MEDS ORDERED: meperidine/PF 25mg/ml syringe IV PRN ×3 (10:00)
[2024-10-01] MEDS: ringers solution, lacted 1,000 ML IV SCH (10:00)
[2024-10-01] MEDS ORDERED: ondansetron/PF 4mg/2ml inj IV PRN ×2 (10:00→12:40)
[2024-10-01] MEDS ORDERED: morphine 4 MG/ML inj SYRINge IV PRN (10:00)
[2024-10-01] MEDS ORDERED: labetalol 20mg/4ml (5mg/ml) syringe IV PRN (10:00)
[2024-10-01] MEDS ORDERED: morphine 2 MG/ML inj. syringe IV PRN (10:00)
[2024-10-01] MEDS ORDERED: INDOCYANINE GREEN 25 MG/10 ML VIAL IV ONE (10:18)
[2024-10-01] MEDS ORDERED: BUPIVAcaine 2.5mg/ml inj 50ml vial (contains preservative) ONE ×2 (10:18→11:27)
[2024-10-01] MEDS ORDERED: LIDOcaine 1% 30ml preserv. free vial ONE (10:19)
--- NOTE | 2024-10-01 10:58 | PROGRESS NOTE- Residence ---
Progress Note - Resident Providers to CC Resident Creating Document: PARK SOLORZANO RES ~ Antibiotic Timeout Antibiotic Ordered?: Yes Subjective Patient was evaluated at bedside. She is currently NPO for surgery. Pain better today. No new concerns or complaints. Objective Vital Signs Date Time Temp Pulse Resp B/P (MAP) Pulse Ox O2 Delivery O2 Flow Rate FiO2 10/01/24 09:30 97.5 09/30/24 22:00 60 16 104/61 (75) 97 Room Air 09/30/24 20:00 0.0 Result Diagram: 10/01/2441710/01/24417 General: Awake and Alert, no acute distress. HEENT: Conjunctiva pink, Sclera clear, Mucus Membranes dry. Neck: Supple without masses and tenderness. Resp: Unlabored. Equal breath sounds bilaterally. Heart: Regular rhythm, normal S1 and S2, no rub, murmur or gallop. Abdomen: Upper and right-sided abdominal pain, tenderness to deep palpation. Toscano sign negative. Abdomen soft, no organomegaly. Normal bowel sounds x4. No guarding or rigidity noted. Extremities: Normal ROM, no swelling, nontender. No cyanosis,clubbing or edema. AUTOMOBILE PARTS ASSEMBLER: No gross motor or sensory abnormalities. Skin: Warm and Dry. Coagulation Studies Laboratory Tests Test 10/01/24 07:57 Prothrombin Time 11.0 SECONDS (9.0-12.0) INR International Normalized Ratio 1.1 INR Activated Partial Thromboplast Time 30 SECONDS (22-32) Coagulation Comments Assessment Assessment 39-year-old female with no significant past medical history presented to the ED with chief complaints of abdominal pain x1 day. Plan Plan Acute gallstone pancreatitis Acute abdominal pain secondary to above Transaminitis WBCs and lactic acid within normal limits Lipase significantly elevated >375 UA negative, urine hCG negative, U tox negative Ultrasound abdomen: Cholelithiasis without signs of acute cholecystitis continue LR at 150 mL/hour CT abdomen pelvis: Partially ruptured right ovarian cyst. Some high-density fluid in the pelvis which may represent hemorrhage. Slightly thickened gallbladder without gallstones or biliary obstruction. Mild acalculous cholecystitis questionable. 09/29/2024: She continues to have abdominal pain 5/10 LFTs are downtrending but still high Consulted surgeon Dr. Hill, recommended: ice chips for today as she continues to have the abdominal pain. She can start clear liquids tomorrow. If bilirubin increases, she will likely need MRCP versus ERCP. If not she will be taken for surgery on . 09/30/2024 Tolerating clear liquid diet, NPO after midnight likely to be taken for surgery tomorrow 10/01/24 Continue IV antibiotics Cholecystectomy scheduled for today. Partially ruptured ovarian cyst Dr.George Curtis BUSTAMANTE evaluated the patient and recommended to to get a transvaginal ultrasound. And to repeat CBC as there was a drop in the hemoglobin from 14-12, with the patient was also getting aggressive fluid resuscitation, hence the drop could have been secondary to dilution. She does not have any active signs of bleeding. Follow up with ultrasound pelvis H&H stable. 10/01/2024 Pelvic transabdominal and transvaginal ultrasound unremarkable. No further intervention required. Code Status: Full code DVT prophylaxis: Lovenox Analgesia/sedation: Morphine/[place] Line/tube: PIV GI prophylaxis: Protonix Nutrition: NPO after midnight Prognosis: Guarded Disposition: Continue medical management. Park Solorzano MD. IM Resident PGY-2 Date of Service: Oct 01, 2024 Billing Provider: MIMI GUERRERO MD Common Visit Codes: [id number] INP/OBS CARE(HIGH) PARK SOLORZANO, RES Oct 01, 2024 10:58 MIMI GUERRERO MD Oct 01, 2024 22:01
[2024-10-01] MEDS ORDERED: LIDOcaine 1% (10mg/ml)w/preservative inj. 20ml MDV ONE (11:27)
[2024-10-01] MEDS ORDERED: sevoflurane 250ml liquid IH ONE (11:30)
[2024-10-01] MEDS ORDERED: midazolam 1 mg/ML 2ml injection ONE (11:40)
[2024-10-01] MEDS ORDERED: fentaNYL/PF 50MCG/1 ML 2ML syringe ONE (11:40)
[2024-10-01] MEDS ORDERED: propofol inj 20 ML IV ONE (11:48)
[2024-10-01] MEDS ORDERED: LIDOcaine 1%/PF 5ML 10 MG/ML VIAL ONE (11:48)
[2024-10-01] MEDS ORDERED: dexamethasone sod phosphate 4mg/ml inj. ONE (11:49)
[2024-10-01] MEDS ORDERED: ondansetron/PF 4mg/2ml inj ONE (11:49)
[2024-10-01] MEDS ORDERED: acetaminophen 1,000mg/100ml IV 100 ML IV ONE (12:02)
[2024-10-01] MEDS: BUPIVAcaine/PF 2.5 mg/ml (0.25%) 30ml vial IJ ONE (12:10)
[2024-10-01] MEDS ORDERED: HYDROcodone/acetaminophen 5mg/325mg tablet PO PRN (12:40)
[2024-10-01] MEDS ORDERED: naloxone 0.4 mg/ml inj IV PRN (12:40)
[2024-10-01] MEDS ORDERED: HYDROcodone/acetaminophen 10/325mg tab PO PRN (12:40)
[2024-10-01] MEDS ORDERED: PCA WASTE DOCUMENTATION 1 MG ML MC SCH (12:40)
--- NOTE | 2024-10-01 12:46 | OPERATIVE REPORT ---
Operative Report Providers to CC CC: SREE GREEN MD ~ Date of Procedure: Oct 01, 2024 Pre-Operative Diagnosis: Gallstone pancreatitis Post-Operative Diagnosis SAME as PRE-Op Procedure Performed Robotic assisted, laparoscopic cholecystectomy Surgeon: Sree Green MD FACS Oil Burner Technician None Anesthesiologist: Jeffrey Rehman Type of Anesthesia: General Findings: Gallbladder with a somewhat thickened gallbladder wall with a chronic appearing cholecystitis Critical view of safety obtained Complications None Prosthetics\Implants used: None Estimated Blood Loss: Minimal Specimen Removed: Gallbladder Description of Procedure: Patient was brought to the operating room and identified by the nursing staff and the attending physician. Patient was placed supine and general anesthesia was induced. A supraumbilical, midline incision was made, long enough to accommodate a 12 mm Sinclair port. Sinclair technique was used to gain entry into the abdomen. Stay sutures were placed in the Sinclair port anchored to the fascia. Abdomen was insufflated without incident. Laparoscope was inserted and the abdomen surveyed. Secondary, 8.5 mm robotic trochars were placed in the left upper quadrant and right lateral abdomen. Robotic arm was docked to the patient. Robotic instruments were guided intra-abdominally under laparoscopic visualization. Gallbladder was readily identified. It had chronic appearing thickened wall. Fundus of the gallbladder was grasped and retracted over the dome of the liver. Infundibulum was retracted towards the right lower quadrant. Firefly technology was used to obtain a fluorescent cholangiogram and visualize the pertinent anatomy. Cystic duct was clearly visualized. Peritoneum overlying the triangle was incised with hook electrocautery. This allowed for circumferential dissection of the cystic duct and artery. Critical view of safety was obtained. Duct and artery were then clipped with hemo-lock clips and both structures divided. Gallbladder was retracted laterally and dissected out of the gallbladder fossa. Gallbladder was set aside and fluorescent cholangiogram of the gallbladder fossa was used to confirm no evidence of bile leak. Gallbladder was placed in a laparoscopic retrieval bag. Secondary trochars were removed and the abdomen allowed to deflate. Sinclair port was removed with the specimen in its retrieval bag. Fascia at the umbilical port site was closed with 0 Vicryl sutures. Skin was closed with 4-0 Monocryl sutures in a subcuticular fashion About 40 cc of local anesthetic was used during the case. Sterile dressings were applied. Patient was awakened and taken to the postanesthesia care unit in stable condition. Counts repoted as correct: Yes SREE GREEN MD Oct 01, 2024 12:46
[2024-10-01] MEDS ORDERED: magnesium sulf-water 4G/100mL 100 ML IV PRN (15:05)
[2024-10-01] MEDS ORDERED: potassium Cl 20 mEq SR tablet PO PRN (15:05)
[2024-10-01] MEDS ORDERED: magnesium Cl slow-release 64mg tablet PO PRN (15:05)
[2024-10-01] MEDS ORDERED: magnesium sulf-water 2g/50mL 50 ML IV PRN (15:05)
[2024-10-01] MEDS ORDERED: potassium Cl 40MEQ/1/2NS 520ml 520 ML IV PRN (15:05)
[2024-10-01] MEDS: potassium Cl 20 mEq SR tablet PO PRN (15:08)
[2024-10-01] MEDS: HYDROcodone/acetaminophen 10/325mg tab PO PRN (15:13)
[2024-10-02 02:00] VITALS: BP 93/56; PULSE 60; RESP 14; TEMP 98; O2SAT 97
[2024-10-02 06:00] VITALS: BP 102/52; PULSE 63; RESP 14; TEMP 98.4; O2SAT 98
[2024-10-02 06:20] LABS: BASOPHILS % (AUTO) 0.2 % (0-1); EOSINOPHILS % (AUTO) 0.2 % (0-6); HEMATOCRIT 35.4 % (35.0-45.0); HEMOGLOBIN 12.3 g/dl (12.0-16.0); LYMPHOCYTES # (AUTO) 1.9 X10'3 (1.1-4.8); LYMPHOCYTES % (AUTO) 22.6 % (21-51); MEAN CORPUSCULAR HEMOGLOBIN 30.7 PG (27.0-31.0); MEAN CORPUSCULAR HGB CONC 34.7 g/dL (33.0-36.5); MEAN CORPUSCULAR VOLUME 88.6 FL (78-98); MEAN PLATELET VOLUME 7.4 FL (7.4-10.4); MONOCYTES # (AUTO) 0.7 X10'3 (0-0.9); MONOCYTES % (AUTO) 8.3 % (2-12); NEUTROPHILS # (AUTO) 5.9 X10'3 (1.8-7.7); NEUTROPHILS % (AUTO) 68.7 % (42-75); PLATELET COUNT 325 X10'3 (140-440); RED CELL DISTRIBUTION WIDTH 13.5 % (11.5-14.5); WHITE BLOOD COUNT 8.6 X10'3 (4.5-11.0)
[2024-10-02 06:26] LABS: ALANINE AMINOTRANSFERASE 204 U/L (12-78); ALBUMIN 3.2 G/DL (3.4-5.0); ALKALINE PHOSPHATASE 117 IU/L (46-116); ANION GAP 8 (8-16); ASPARTATE AMINO TRANSFERASE 56 U/L (10-37); BILIRUBIN,TOTAL 0.6 MG/DL (0.1-1.0); BLOOD UREA NITROGEN 2 MG/DL (7-18); BUN/CREATININE RATIO 2.8 (10.0-20.0); CALCIUM 8.5 MG/DL (8.5-10.1); CHLORIDE 107 MMOL/L (99-107); CREATININE 0.72 MG/DL (0.40-0.90); GLUCOSE 92 MG/DL (70-104); MAGNESIUM 1.5 MG/DL (1.5-2.4); PHOSPHORUS 3.2 MG/DL (2.3-4.5); POTASSIUM 3.8 MMOL/L (3.5-5.1); SODIUM 142 MMOL/L (135-145); TOTAL CARBON DIOXIDE 27.1 MMOL/L (24-32); TOTAL PROTEIN 6.4 G/DL (6.4-8.2); eCRCL 51 ML/MIN; eGFR 89 ML/MIN
--- NOTE | 2024-10-02 06:40 | PROGRESS NOTE ---
Progress Note Dictate Providers to CC CC: ELIZABETH GREEN MD ~ Progress Note: Subsequent surgical care on a 39-year-old female who is postoperative day one status post robotic assisted, laparoscopic cholecystectomy following an episode of gallstone pancreatitis Doing well today Tolerating diet Laboratory studies trending towards normal Incisions dressed and dry Safe for discharge home from a surgical standpoint Defer to the medical service Surgical discharge instructions placed Follow up instructions placed Antibiotic Ordered?: No Objective Vitals Vital Signs Date Time Temp Pulse Resp B/P (MAP) Pulse Ox O2 Delivery O2 Flow Rate FiO2 10/02/24 02:00 98.0 60 14 93/56 (68) 97 Room Air 10/01/24 20:00 0.0 Lab Results: 10/02/24 0527 10/02/24 0527 Coagulation Studies Laboratory Tests Test 10/01/24 07:57 Prothrombin Time 11.0 SECONDS (9.0-12.0) INR International Normalized Ratio 1.1 INR Activated Partial Thromboplast Time 30 SECONDS (22-32) Coagulation Comments Problem\Assessment\Plan Problems/Diagnosis: (1) Gallstone pancreatitis (2) Cholelithiasis Problem Qualifiers (1) Cholelithiasis: ELIZABETH GREEN MD Oct 02, 2024 06:40
[2024-10-02 09:00] VITALS: RESP 18; O2SAT 98
[2024-10-02] MEDS: enoxaparin 40mg/0.4ml syringe SQ SCH (09:32)
[2024-10-02 10:00] VITALS: BP 114/62; PULSE 69; RESP 18; TEMP 98.1; O2SAT 98
[2024-10-02 10:36] VITALS: RESP 18
--- NOTE | 2024-10-02 13:46 | DISCHARGE SUMMARY-Residence ---
Discharge Summary Providers to CC Resident Creating Document: EILEEN SOLORZANO RES ~ Discharge Summary Admission Diagnosis: Gallstone pancreatitis Hospital Course DATE OF ADMISSION: 09/28/2024 DATE OF DISCHARGE: 10/02/2024 Hospital course same as mentioned discharge summary. Discharge Diagnosis\Comment: Acute gallstone pancreatitis Acute abdominal pain Transaminitis Partially ruptured ovarian cyst Operations\Procedures: Robotic assisted laparoscopic cholecystectomy Consultants: Dr. Hill surgeon Complications: None Condition on DC: Stable Medication Profile: No Active Prescriptions or Reported Meds Discharge Summary: Patient is a 39 year old female with no significant past medical history who presented to the ED with acute onset URQ abdominal pain that radiated to her back for the past day after eating a meal. There were no relieving factors. Analysis of labs revealed elevated lipase >375 and abdominal US was significant for cholelithiasis without signs of acute cholecystitis. CT of the abdomen also revealed a partially ruptured ovarian cyst and thickened gallbladder without gallstones or biliary obstruction. The patient was placed on Lovenox for DVT prophylaxis, protonix, and morphine/norco. Surgery was consulted for acute pancreatitis and robotic assisted laparoscopic cholecystectomy was discussed and performed on 10/01/2024. EYELET RIVETER was consulted regarding the partially ruptured ovarian cyst and there was no indication of active bleeding and transvaginal US was unremarkable. The patient is doing well and cleared for discharge. There are no discharge medications. Hospital course is uncomplicated she is hemodynamically stable on the day of discharge and her physical exam is as follows: General: Awake and Alert, no acute distress. HEENT: Conjunctiva pink, Sclera clear, Mucus Membranes dry. Neck: Supple without masses and tenderness. Resp: Unlabored. Equal breath sounds bilaterally. Heart: Regular rhythm, normal S1 and S2, no rub, murmur or gallop. Abdomen: Abdomen soft, no organomegaly. Normal bowel sounds x4. No guarding or rigidity noted. Extremities: Normal ROM, no swelling, nontender. No cyanosis,clubbing or edema. SFDC DEVELOPER: No gross motor or sensory abnormalities. Skin: Warm and Dry. Patient is being discharged with the following advice: Activity as tolerated No lifting more than 15 pounds for 2 weeks Diet as tolerated Remove Band-Aids 48 hours after surgery If carlton in place, these will be removed in 10-14 days If Steri-Strips in place, leave in place for 7-10 days May shower 48 hours after surgery Follow-up with Dr. Hill in 2 weeks. Call for appointment. [phone] Laboratory Tests Test 10/01/24 04:18 10/01/24 07:57 10/01/24 09:34 10/02/24 05:27 White Blood Count 5.5 X10'3 8.6 X10'3 Red Blood Count 4.22 X10'6 4.00 X10'6 Hemoglobin 12.9 g/dl 12.3 g/dl Hematocrit 37.0 % 35.4 % Mean Corpuscular Volume 87.7 FL 88.6 FL Mean Corpuscular Hemoglobin 30.5 PG 30.7 PG Mean Corpuscular Hemoglobin Concent 34.7 g/dL 34.7 g/dL Red Cell Distribution Width 13.1 % 13.5 % Platelet Count 311 X10'3 325 X10'3 Mean Platelet Volume 6.9 FL 7.4 FL Neutrophils (%) (Auto) 47.1 % 68.7 % Lymphocytes (%) (Auto) 41.6 % 22.6 % Monocytes (%) (Auto) 9.2 % 8.3 % Eosinophils (%) (Auto) 1.7 % 0.2 % Basophils (%) (Auto) 0.4 % 0.2 % Neutrophils # (Auto) 2.6 X10'3 5.9 X10'3 Lymphocytes # (Auto) 2.3 X10'3 1.9 X10'3 Monocytes # (Auto) 0.5 X10'3 0.7 X10'3 Eosinophils # (Auto) 0.1 X10'3 0.0 X10'3 Basophils # (Auto) 0.0 X10'3 0.0 X10'3 CBC Comment Sodium Level 144 MMOL/L 142 MMOL/L Potassium Level 3.2 MMOL/L 3.8 MMOL/L Chloride Level 106 MMOL/L 107 MMOL/L Carbon Dioxide Level 23.8 MMOL/L 27.1 MMOL/L Anion Gap 14 8 Blood Urea Nitrogen 3 MG/DL 2 MG/DL Creatinine 0.68 MG/DL 0.72 MG/DL Estimated GFR/1.73 m2 > 90 ML/MIN 89 ML/MIN BUN/Creatinine Ratio 4.4 2.8 Glucose Level 98 MG/DL 92 MG/DL Calcium Level 8.7 MG/DL 8.5 MG/DL Phosphorus Level 4.2 MG/DL 3.2 MG/DL Magnesium Level 1.7 MG/DL 1.5 MG/DL Total Bilirubin 0.6 MG/DL 0.6 MG/DL Aspartate Amino Transf (AST/SGOT) 40 U/L 56 U/L Alanine Aminotransferase (ALT/SGPT) 251 U/L 204 U/L Alkaline Phosphatase 138 IU/L 117 IU/L Total Protein 6.9 G/DL 6.4 G/DL Albumin 3.2 G/DL 3.2 G/DL Globulin 3.7 G/DL 3.2 G/DL Albumin/Globulin Ratio 0.9 1.0 Chemistry Comments Prothrombin Time 11.0 SECONDS INR International Normalized Ratio 1.1 INR Activated Partial Thromboplast Time 30 SECONDS Coagulation Comments Glucometer 115 mg/dl *Problems/Diagnosis: (1) Gallstone pancreatitis (2) Cholelithiasis Total Time Spent on D/C: > 30 Minutes Date of Service: Oct 02, 2024 Billing Provider: MIMI GUERRERO MD Common Visit Codes: [id number] DAY >30min Problem Qualifiers (1) Cholelithiasis: Cholelithiasis location: gallbladder EILEEN SOLORZANO, RES Oct 02, 2024 13:46 MIMI GUERRERO MD Oct 02, 2024 21:54
== END 2024-10-02 11:50 | disposition home or self-care (01) | DRG 263 ==
LOC: ER 09:18 → ED HOLD 14:56 → SUR 3N 19:00
PROVIDERS: ADMIT Internal Medicine; ATTEND Internal Medicine
PROC: BW211ZZ Computerized Tomography (CT Scan) of Abdomen and Pelvis using Low Osmolar Contrast (ICD-10-PCS; 2024-09-28)
PROC: CF1C1ZZ Planar Nuclear Medicine Imaging of Hepatobiliary System, All using Technetium 99m (Tc-99m) (ICD-10-PCS; 2024-09-29)
PROC: 8E0W4CZ Robotic Assisted Procedure of Trunk Region, Percutaneous Endoscopic Approach (ICD-10-PCS; 2024-10-01)
PROC: 0FT44ZZ Resection of Gallbladder, Percutaneous Endoscopic Approach (ICD-10-PCS; principal; 2024-10-01 11:33)
DX: K85.10 Biliary acute pancreatitis without necrosis or infection (principal); I95.9 Hypotension, unspecified; K80.20 Calculus of gallbladder without cholecystitis without obstruction; N83.291 Other ovarian cyst, right side; R74.01 Elevation of levels of liver transaminase levels
CPT/HCPCS: 36415; 74177; 76700; 76830; 76856; 78227; 80053; 80061; 80305; 80320; 81001; 81025; 82948; 83036; 83605; 83690; 83735; 84100; 85025; 85610; 85730; 87040; 87081; 93976; 96361; 96372; 96374; 96375; 99285; A4215; A4618; A6258; A7000; A9537; G0378; J0131; J0744; J1100; J1171; J1650; J2003; J2250; J2405; J2470; J2704; J2710; J2805; J3010; J3490; J7030; J7120; Q9967